=== PATIENT | male | born 1980 | race Caucasian/White ===

== ENCOUNTER 2017-12-17 08:23 | Emergency (ER) | payer OTHER ==
[~2017-12-17] VITALS: Ht 190.5 cm; Wt 88.9 kg
[~2017-12-17 08:23] MED LIST: CYCLOBENZAPRINE5 MG PO; HYDROCODONE-AP1 EAC6 PO; NAPROSYN500 MG PO
[2017-12-17 08:41] LABS: URINE BLOOD NEGATIVE (Negative); URINE CLARITY CLEAR; URINE COLOR YELLOW; URINE GLUCOSE-RANDOM NEGATIVE (Negative); URINE KETONES TRACE (Negative); URINE LEUKOCYTES-REFLEX NEGATIVE (Negative); URINE NITRITE-REFLEX NEGATIVE (Negative); URINE PROTEIN TRACE (Negative); URINE SPECIFIC GRAVITY 1.025 (1.005-1.030)
[2017-12-17 08:43] LABS: ABSOLUTE BASOPHILS 0.1 thou/uL (0.0-0.2); ABSOLUTE EOSINOPHILS 0.1 thou/uL (0.0-0.7); ABSOLUTE MONOCYTES 0.8 thou/uL (0.0-1.2); ABSOLUTE NEUTROPHILS 15.4 thou/uL (1.6-8.1); BASOPHILS 0.5 %; EOSINOPHILS 0.4 %; HEMATOCRIT 44.8 % (42.0-52.0); MCH 31.9 pg (26.0-34.0); MCHC 33.5 g/dL (28.0-37.0); MCV 95.1 fL (80.0-100.0); MONOCYTES 4.3 %; MPV 8.3 fl. (7.2-11.1); NUCLEATED RBCS 0 /100WBC; PLATELET COUNT* 305 thou/uL (150-400); POLYS 83.8 %; RBC 4.71 mil/uL (4.50-6.00); RDW-CV 12.9 % (10.5-14.5); WBC 18.4 thou/uL (4.0-11.0)
[2017-12-17 08:45] LABS: URINE BILIRUBIN 1+ (Negative)
[2017-12-17 08:46] LABS: ICTOTEST (BILI CONFIRMATORY) Negative (Negative)
[2017-12-17 09:28] LABS: POTASSIUM 3.4 mmol/L (3.5-5.1)
[2017-12-17 09:29] LABS: ALBUMIN 4.3 g/dL (3.4-5.0); CALCIUM 9.5 mg/dL (8.5-10.1); TOTAL BILIRUBIN 0.4 mg/dL (<0.1-1.0); TOTAL PROTEIN 7.9 g/dL (6.4-8.2)
[2017-12-17] MEDS ORDERED: ZOFRAN ODT4 MG PO (10:58)
[2017-12-17] MEDS ORDERED: FLAGYL500 MG PO (10:58)
[2017-12-17] MEDS ORDERED: NORCO 5-325 TA1 EACH PO (10:58)
[2017-12-17] MEDS ORDERED: AUGMENTIN 875-1 EACH PO (10:58)
[2017-12-17 11:06] VITALS: BP 127/78
--- NOTE | 2017-12-18 10:38 | EKG ---
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1980 Requested By: Cam Cornelius Order Number: [id number] MD: Ronnie Parks Measurements Intervals [place] Rate: 69 P: -44 LA: 140 QRS: 81 QRSD: 106 T: 47 QT: 401 QTc: 430 Interpretive Statements Sinus rhythm ST elev, probable normal early repol pattern Baseline wander in lead(s) V3 No previous ECG available for comparison Electronically Signed On 12-18-2017 10:37:57 CDT by Ronnie Parks [email or web address] <ELECTRONICALLY SIGNED> By: Ronnie Parks MD, [facility] 12/18/17 1037 7 Ronnie Parks MD, FACC /EPI
== END 2017-12-17 11:06 | disposition home or self-care (01) ==
LOC: M.ERS 08:23
PROVIDERS: Emergency Medicine Emergency Medical Services
DX: K52.9 Noninfective gastroenteritis and colitis, unspecified (principal); F17.210 Nicotine dependence, cigarettes, uncomplicated; F12.10 Cannabis abuse, uncomplicated